=== PATIENT | female | born 1970 | race African-American/Black ===

== ENCOUNTER 2016-09-24 19:06 | Emergency (ER) | payer SELFPAY ==
[~2016-09-24] VITALS: Ht 170.2 cm; Wt 122.5 kg
[2016-09-24] MEDS ORDERED: TRULICITY0.75 MG/0. SQ (19:21)
[2016-09-24 19:35] VITALS: BP 145/89
[2016-09-24] MEDS ORDERED: Ketorolac 30mg Inj IV ONE (19:45)
[2016-09-24] MEDS ORDERED: Famotidine 20 MG/ 2ML VIAL IVP ONE (19:45)
--- NOTE | 2016-09-24 19:52 | Emergency Room Report ---
History of Present Illness General Chief Complaint: Abdominal Pain Source: Patient Present Illness HPI [id number] walk-in with abd pain since last night. Initialy had chest pain, substernal, non-radiating yesterday. Relieved with tylenol. Then had generalized non-focal abd pain with nausea and chills, non radiating since last night. Took meds today and slept all day, pain woke her up. History of DM, C/ section. Denies associated vomiting, diarrhea. Denies sick contacts, foreign travel. Allergies: Coded Allergies: PENICILLINS (Verified Allergy, Unknown, 09/24/16) Patient History Past Medical History: DM, GERD Past Surgical History: hysterectomy Pertinent Family History: none Social History: Denies: alcohol use, drug use, smoking Last Menstrual Period: 2 MONTHSS AGO Now: No Immunizations: UTD Reviewed Nursing Documentation: PMH: Agreed, PSxH: Agreed Nursing Documentation-PMH Hx Diabetes: Yes - DM TYPE 2 Review of Systems All Other Systems: negative except mentioned in HPI Physical Exam Vital Signs Date Time Temp Pulse Resp B/P Pulse Ox O2 Delivery O2 Flow Rate FiO2 09/24/16 19:16 98.4 110 18 145/89 98 Room Air Sp02 EP Interpretation: reviewed, abnormal General Appearance: normal inspection, well appearing, no apparent distress, alert, GCS 15, non-toxic, obese Head: normocephalic, atraumatic Eyes: bilateral eye EOMI, bilateral eye PERRL ENT: normal ENT inspection, hearing grossly normal, normal voice Neck: normal inspection, full range of motion, supple, no bony tend Respiratory: normal inspection, lungs clear, normal breath sounds, no respiratory distress, no retraction, no wheezing Cardiovascular #1: regular rate, rhythm, no edema Gastrointestinal: normal inspection, normal bowel sounds, non tender, soft, no mass, no guarding, no hernia, no pulsatile mass, no rebound Genitourinary: no CVA tenderness Musculoskeletal: normal inspection, back normal, normal range of motion, Jama' s Sign negative Neurologic: normal inspection, alert, oriented x3, responsive, lobster fisherman III-XII nml as tested, motor strength/tone normal, speech normal Psychiatric: normal inspection, judgement/insight normal, mood/affect normal Skin: normal inspection, normal color, no rash Lymphatic: normal inspection Medical Decision Making Diagnostic Impression: Primary Impression: Abdominal pain Qualified Codes: R10.13 - Epigastric pain Additional Impressions: Chest pain Qualified Codes: R07.9 - Chest pain, unspecified Fatty liver Uterine fibroid Qualified Codes: D25.9 - Leiomyoma of uterus, unspecified ER Course Epigastric abd pain - No leuks. Afebrile. 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 Uterine fibroids. No other acute bacterial, surgical problem requiring additional intervention, admission - Patient feels much better with analgesia - Advised to followup with PMD to recheck LFTs Chest pain - ECG NSR. Troponin 0. - Chest pain was yesterday so one set sufficient to r/o ACS at this time Utox + for meth likely lab error Patient vehemently denies drug use Not on ADHD meds No prior history here for drug abuse EKG Diagnostic Results Rate: normal Rhythm: NSR ST Segments: no acute changes ASA given to the pt in ED: No Rhythm Strip Diag. Results EP Interpretation: yes Rate: 98 Rhythm: NSR, no PVC's, no ectopy Chest X-Ray Diagnostic Results Chest X-Ray Ordered: Yes # of Views/Limited/Complete: 1 View Interpretation: no consolidation, no effusion, no pneumothorax, no acute cardiopulmonary disease Indication: Chest Pain Impression: No acute disease Date Electronically Signed: Sep 24, 2016 Time Electronically Signed: 19:51 Interpreting ER Physician: Mita Last Vital Signs Date Time Temp Pulse Resp B/P Pulse Ox O2 Delivery O2 Flow Rate FiO2 09/24/16 19:35 98.4 103 17 145/89 97 Room Air Status: improved Disposition: HOME, SELF-CARE LAWRENCE SENIOR M.D. Sep 24, 2016 19:51
[2016-09-24 20:21] LABS: APPEARANCE,URINE CLEAR; BASOPHILS % (AUTO) 0.9 % (0.0-2.0); EOSINOPHILS % (AUTO) 1.2 % (0.0-3.0); KETONES,URINE 3+ (NEGATIVE); LEUKOCYTE ESTERASE ,URINE 1+ (NEGATIVE); MEAN CORPUSCULAR HEMOGLOBIN 25.2 PG (27.0-31.0); MEAN CORPUSCULAR VOLUME 79 FL (80-99); MEAN PLATELET VOLUME 7.9 FL (6.5-10.1); MONOCYTES % (AUTO) 3.3 % (1.0-10.0); NEUTROPHILS % (AUTO) 80.7 % (45.0-75.0); NITRITE,URINE NEGATIVE (NEGATIVE); PH,URINE 6 (4.5-8.0); PLATELET COUNT 243 K/UL (150-450); PROTEIN,URINE 1+ (NEGATIVE); RED BLOOD COUNT 4.52 M/UL (4.20-5.40); RED CELL DISTRIBUTION WIDTH 15.3 % (11.6-14.8); UROBILINOGEN,URINE 8 MG/DL (0.0-1.0); WHITE BLOOD COUNT 8.4 K/UL (4.8-10.8)
[2016-09-24 20:36] LABS: RBC,URINE 0-2 /HPF (0 - 2); SQUAMOUS EPITHELIAL CELL,UR FEW /LPF (NONE/OCC)
[2016-09-24 20:37] LABS: BACTERIA,URINE FEW /HPF; ICTOTEST POSITIVE
[2016-09-24 20:47] LABS: TROPONIN I < 0.30 ng/mL (<=0.30)
[2016-09-24 21:09] LABS: ANION GAP 16 (5-15); CARBON DIOXIDE 22 mEQ/L (20-30); CHLORIDE 100 mEQ/L (98-107); POTASSIUM 3.8 mEQ/L (3.4-4.9); SODIUM 138 mEQ/L (135-145)
[2016-09-24 21:10] LABS: ALANINE AMINOTRANSFERASE 249 U/L (3-33); ASPARTATE AMINO TRANSFERASE 217 U/L (5-40); CREATININE 0.8 mg/dL (0.5-0.9); GLOMERULAR FILTRATION RATE > 60 mL/min (>60)
[2016-09-24 21:11] LABS: ALBUMIN/GLOBULIN RATIO 1.1 (1.0-2.7); LIPASE 15 U/L (< 60); TOTAL PROTEIN 7.6 g/dL (6.6-8.7)
[2016-09-24 21:26] LABS: BILIRUBIN,DIRECT 2.6 mg/dL (0.1-0.3)
[2016-09-24 21:35] VITALS: BP 137/84
[2016-09-24 23:35] VITALS: BP 142/81
[2016-09-24 23:42] VITALS: BP 142/81
--- NOTE | 2016-09-25 09:20 | Diagnostic Imaging Report ---
Indication: Abdominal pain Technique: Robles-scale and duplex images of the upper abdomen were obtained Comparison: Findings: Exam is limited due to patient body habitus. Gallbladder is nondistended and evaluation is therefore limited. Patient reportedly not n.p.o. No gross gallstones, wall thickening, or pericholecystic fluid. Sonographic Durbin's sign is negative. Common bile duct measures 5 mm in diameter. No intrahepatic biliary ductal dilatation. Liver demonstrates diffusely increased echogenicity, consistent with diffuse hepatocellular disease, most likely fatty change. Portal vein and hepatic veins are patent. Pancreas is unremarkable. Spleen is unremarkable. Left kidney measures 13.8 cm in length. Right kidney measures 10.9 cm length. Both kidneys demonstrate normal echogenicity. There is no hydronephrosis. No focal abnormality . Non-aneurysmal abdominal aorta . Impression: Limited exam, as described, due to patient body habitus and lack of distention of the gallbladder No gross gallstones but cannot rule out with any confidence. Negative for dilated ducts Liver demonstrates diffusely increased echogenicity, consistent with diffuse hepatocellular disease, most likely fatty change.
--- NOTE | 2016-09-25 09:26 | Diagnostic Imaging Report ---
Clinical Indication: Abdominal pain Technique: No oral contrast utilized, per emergency room physician request IV administration nonionic contrast. Venous phase spiral acquisition obtained through the abdomen and pelvis. Multiplanar reconstructions were generated. Total dose length product 1053 mGycm. CTDIvol(s) 19 mGy. Dose reduction achieved using automated exposure control Comparison: None Findings: There is no evidence of diverticulosis or diverticulitis. Small but otherwise normal appendix. One prominent lymph nodes are seen in the right lower quadrant. No small bowel distention. No free or loculated intraperitoneal air or fluid. The distal esophagus, stomach, duodenum are unremarkable. The liver is somewhat hypoattenuating, consistent with diffuse hepatocellular disease, most likely fatty change. There is a subcentimeter low-attenuation lesion and segment 4 a which is too small to characterize. No other focal abnormalities. Gallbladder is nondistended. No obvious gallstones. The pancreas, spleen, adrenals, left kidney are unremarkable. Subcentimeter low-attenuation lesion within the right kidney is too small to characterize, most likely benign simple cortical cyst. No retroperitoneal or mesenteric mass or adenopathy. The uterus contains an enhancing 5.5 cm fibroid. There is central low-attenuation which may indicate necrosis. A few other smaller fibroids are also demonstrated. No adnexal mass. The included lung bases are clear. There are degenerative changes of the lumbar spine Impression: No acute abnormality Fibroid uterus Fatty liver Subcentimeter low-attenuation lesion within the right kidney, too small to characterize, most likely benign cortical cyst. No further followup necessary This agrees with the preliminary interpretation provided overnight by [facility]erad[facility] service. The CT scanner at [facility] is accredited by the [employer] and the scans are performed using protocols designed to limit radiation exposure to as low as reasonably achievable to attain images of sufficient resolution adequate for diagnostic evaluation.
== END 2016-09-24 23:42 | disposition home or self-care (01) ==
LOC: EMR 20:00
DX: R10.13 Epigastric pain (principal); R07.9 Chest pain, unspecified; K76.0 Fatty (change of) liver, not elsewhere classified; D25.9 Leiomyoma of uterus, unspecified; Z88.0 Allergy status to penicillin; E11.9 Type 2 diabetes mellitus without complications; K21.9 Gastro-esophageal reflux disease without esophagitis
CPT/HCPCS: 36415; 74177; 76700; 80053; 80300; 81003; 82248; 83690; 84484; 84702; 85025; 93005; 96374; 96375; 99284; J1885; Q9967; S0028

== ENCOUNTER 2017-08-18 21:06 | Emergency (ER) | payer OTHER ==
[~2017-08-18] VITALS: Ht 170.2 cm; Wt 120.2 kg
[~2017-08-18 21:06] MED LIST: TRULICITY0.75 MG/0. SQ
--- NOTE | 2017-08-18 21:32 | Emergency Room Report ---
History of Present Illness General Chief Complaint: Pain Source: Patient Present Illness HPI Patient stubbed her toe yesterday. The pain is increasing today. She's taken Tylenol. There is swelling and discoloration/bruising of the toe. The pain is rated at 8/10, throbbing, aching, not radiating and worse when foot dependent. No numbness. No fevers. 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 The patient has history of diabetes. Allergies: Coded Allergies: PENICILLINS (Verified Allergy, Unknown, 09/24/16) Patient History Past Medical History: see triage record Social History: Denies: smoking Social History Narrative works in [employer] Last Menstrual Period: 07/27/17 Now: No : 2 Para: 2 Nursing Documentation-PMH Hx Diabetes: Yes - DM TYPE 2 Review of Systems Constitutional: Denies: fever Musculoskeletal: Reports: see HPI Skin: Reports: see HPI Neurological: Reports: see HPI Hematologic/Lymphatic: Reports: see HPI Physical Exam Vital Signs Date Time Temp Pulse Resp B/P (MAP) Pulse Ox O2 Delivery O2 Flow Rate FiO2 08/18/17 21:25 98.1 94 14 134/83 97 Room Air 98.1 Sp02 EP Interpretation: reviewed, normal General Appearance: well appearing, no apparent distress Head: normocephalic, atraumatic Eyes: bilateral eye normal inspection ENT: hearing grossly normal, normal voice, moist mucus membranes Neck: full range of motion, supple Respiratory: no respiratory distress, speaking full sentences Cardiovascular #2: 2+ dorsalis pedis (R) - good cap fill of toe Gastrointestinal: normal inspection Musculoskeletal: normal range of motion, no calf tenderness, swelling - R 3rd toe, TTP Neurologic: alert, sensory intact, normal gait Psychiatric: mood/affect normal Skin: other - ecchimoses R 3rd toe Medical Decision Making Diagnostic Impression: Primary Impression: Toe contusion Qualified Codes: S90.121A - Contusion of right lesser toe(s) without damage to nail, initial encounter ER Course Patient presents with R toe pain. DDx: fracture, contusion, hematoma. No evidence of infection. H/O diabetes. Accucheck will be checked. Analgesia given. Xray no fx. Glucose 102. Tho splint applied by tech. Neurovasc checked by me as well as tension and position which are excellent. Discussed findings with patient. Patient stable for outpatient observation and treatment. Other X-Ray Diagnostic Results Other X-Ray Diagnostic Results : # of Views/Limited Vs Complete: 3 View Indication: Pain EP Interpretation: Yes Interpretation: no dislocation, no soft tissue swelling, no fractures Impression: No acute disease Electronically Signed by: Charles Sotelo MD Last Vital Signs Date Time Temp Pulse Resp B/P (MAP) Pulse Ox O2 Delivery O2 Flow Rate FiO2 08/18/17 22:45 98.1 84 14 134/83 97 Room Air 208.6 Status: improved Disposition: HOME, SELF-CARE Condition: Improved Scripts Tramadol Hcl* (ULTRAM*) 50 Mg Tablet 50 MG ORAL Q6H PRN for For Pain, #10 TAB 0 Refills Prov: Charles Sotelo M.D. 08/18/17 Ibuprofen* (MOTRIN*) 600 Mg Tablet 600 MG ORAL Q6H PRN for For Pain, #16 TAB Prov: Charles Sotelo M.D. 08/18/17 Charles Sotelo M.D. August 18, 2017 21:32
[2017-08-18 21:45] VITALS: BP 134/83
[2017-08-18] MEDS ORDERED: TRAMADOL HCL50 MG ORAL (22:33)
[2017-08-18] MEDS ORDERED: IBUPROFEN600 MG ORAL (22:33)
[2017-08-18 22:45] VITALS: BP 134/83
--- NOTE | 2017-08-19 10:14 | Diagnostic Imaging Report ---
Indication: Pain Comparison: None Findings: 3 views of the right foot were obtained. There is widening of the fifth PIP joint which is a chronic finding. This may be on the basis of previous surgery or trauma. There is no acute injury or malalignment identified. Small plantar calcaneal spurs noted. IMPRESSION: No acute injury
== END 2017-08-18 22:45 | disposition home or self-care (01) ==
LOC: EMR 21:37
DX: S90.121A Contusion of right lesser toe(s) without damage to nail, initial encounter (principal); W22.03XA Walked into furniture, initial encounter; Y92.9 Unspecified place or not applicable; E11.9 Type 2 diabetes mellitus without complications; Z88.0 Allergy status to penicillin
CPT/HCPCS: 99283

== ENCOUNTER 2017-12-02 13:11 | Emergency (ER) | payer OTHER ==
[~2017-12-02] VITALS: Ht 177.8 cm; Wt 74.8 kg
[~2017-12-02 13:11] MED LIST changes: +IBUPROFEN600 MG ORAL; +TRAMADOL HCL50 MG ORAL
[2017-12-02 13:35] VITALS: BP 112/73
[2017-12-02] MEDS ORDERED: Benzonatate 100mg Perles ORAL ONE (13:45)
--- NOTE | 2017-12-02 13:48 | Emergency Room Report ---
History of Present Illness General Chief Complaint: Upper Respiratory Illness Present Illness HPI 47-year-old female patient presents ER complaining of cough for the past few days. Reports that daughter was recently seen in ER with similar symptoms, diagnosed and discharged with bronchitis. Patient reports headache during this time. Denies hemoptysis. Reports subjective fever and chills at home during this time, does not have a thermometer and did not check temperature. Denies history of CHF or asthma. Denies calf pain. Denies vomiting, chest pain, abdominal pain, dysuria, hematuria. Denies recent travel, history of cancer. states did not take any cough medication. Denies hemoptysis or coughing up sputum. denies smoking. Reports cough worse at night. (Chapin Tang P.AIván) Allergies: Coded Allergies: PENICILLINS (Verified Allergy, Unknown, 09/24/16) Patient History Past Medical History: see triage record Last Menstrual Period: unk Now: No Reviewed Nursing Documentation: PMH: Agreed; PSxH: Agreed (Chapin Tang.Michael) Nursing Documentation-PMH Hx Diabetes: Yes - DM TYPE 2 (Chapin Tang P.AIván) Review of Systems All Other Systems: negative except mentioned in HPI (Chapin Tang P.AIván) Physical Exam Vital Signs Date Time Temp Pulse Resp B/P (MAP) Pulse Ox O2 Delivery O2 Flow Rate FiO2 12/02/17 13:34 98.7 114 18 112/73 97 Room Air 98.8 Sp02 EP Interpretation: reviewed, normal General Appearance: well appearing, no apparent distress, alert, GCS 15, non- toxic Head: normocephalic, atraumatic Eyes: bilateral eye normal inspection, bilateral eye PERRL ENT: hearing grossly normal, normal pharynx, no angioedema, normal voice, uvula midline, moist mucus membranes Neck: full range of motion Respiratory: lungs clear, normal breath sounds, no rhonchi, no respiratory distress, no accessory muscle use, no wheezing, speaking full sentences Cardiovascular #1: regular rate, rhythm, no edema Gastrointestinal: non tender, soft, no mass, non-distended, no guarding, no rebound Musculoskeletal: back normal, digits/nails normal, gait/station normal, normal range of motion, non-tender, no calf tenderness, Jama's Sign negative Neurologic: alert, oriented x3, responsive, motor strength/tone normal, sensory intact Psychiatric: mood/affect normal Skin: no rash (Chapin Tang) Medical Decision Making PA Attestation Dr. Sotelo is my supervising Physician whom patient management has been discussed with. (Chapin Tang) Diagnostic Impression: Primary Impression: Upper respiratory infection ER Course Pt presents to ED c/o cough, fever, headache. DDX considered but are not limited to influenza, viral URI, pneumonia, strep throat, rhinitis, sinusitis, otitis media. negative Homans sign, no recent travel, no hemoptysis, low suspicion for PE, ordered EKG to rule out cardiac pathology. low suspicion for PE per well's criteria no history of heart failure, no muffled heart sounds, no bilateral edema,low suspicion for CHF exacerbation, will order chest x-ray to rule out. VITAL SIGNS are WNL, patient is afebrile. mild elevation of pulse, will continue to monitor, ordered EKG. ER COURSE: provide with cough medication in the ER. Lungs clear to auscultation, no wheezes, rhonci or rales. patient afebrile. Low suspicion for pneumonia. does not require antibiotics. does not require breathing treatment in the ER at this time. headache likely secondary to cough symptoms, no focal neural deficits, cranial nerves intact as tested. no tonsillar exudates, no pharyngeal erythema, history of cough, no fever, no stridor, uvula midline, low suspicion for peritonsillar abscess. chest x-ray showed no acute disease per the preliminary reading. Do not believe patient requires cardiac workup at this time, instructed to follow-up with PCP, ER precautions given, return to ER for new or worsening symptoms, discuss need for cardiac workup at that time. Likely viral etiology of symptoms, upper respiratory tract infection due to the patient complaints of subjective fever at home. Symptomatic treatment. drink plenty of fluids. Followup with PCP for further treatment and/or referral as needed. ER precautions given, return to ER for new or worsening of symptoms. DISCHARGE: -Rx given for Tessalon Perles -Rx given for Tylenol/Acetaminophen -Rx given for albuterol inhaler to help with breathing symptoms. -Rx given for Promethazine with codeine syrup for cough sx. CURES reviewed. Take at night to help with cough during sleep. At this time pt is stable for d/c to home. Patient is resting comfortably, in no acute distress, nontoxic appearing, smiling and talking without difficulty. Patient to take medications as instructed Will provide with patient care instructions and any necessary prescriptions. Care plan and follow-up instructions provided. Patient instructed to follow-up with primary care provider in 3 - 5 days. Patient questions asked and answered. Patient reports understanding and agreement to treatment plan. ER precautions given. Patient instructed to return to ER immediately for any new or worsening of symptoms including but not limited to increasing SOB, persistent fever, intractable vomiting. - Please note that this Emergency Department Report was dictated using [employer] peddler technology software, occasionally this can lead to erroneous entry secondary to interpretation by the dictation equipment. (Chapin Tang) EKG Diagnostic Results Rate: tachycardiac - 102 Rhythm: NSR ST Segments: no acute changes ASA given to the pt in ED: No PA Scribe Text Ollie Tang PA-C (Chapin Tang P.AIván) Rhythm Strip Diag. Results EP Interpretation: yes Rate: 102 Rhythm: NSR, no PVC's, no ectopy PA Scribe Text Ollie Tang PA-C (Chapin Tang P.A.) Chest X-Ray Diagnostic Results Chest X-Ray Diagnostic Results : Chest X-Ray Ordered: Yes # of Views/Limited/Complete: 1 View Indication: Chest Pain EP Interpretation: Yes PA Xray: Interpretation reviewed, by supervising MD, and agrees with findings. Interpretation: no consolidation, no effusion, no pneumothorax, no acute cardiopulmonary disease Impression: No acute disease (Chapin Tang) Chest X-Ray Diagnostic Results : Electronically Signed by: Scribe documentation reviewed by me and is accurate, Charles Sotelo MD (Charles Sotelo M.D.) Last Vital Signs Date Time Temp Pulse Resp B/P (MAP) Pulse Ox O2 Delivery O2 Flow Rate FiO2 12/02/17 13:34 98.7 114 18 112/73 97 Room Air 98.8 (Chapin Tang P.AIván) Disposition: HOME, SELF-CARE Condition: Stable Scripts Codeine/Promethazine Hcl* (PROMETHAZINE-CODEINE SYRUP*) 118 Ml Syrup 5 ML ORAL Q6H PRN for For Cough, #50 ML 0 Refills Prov: Chapin Tang 12/02/17 Albuterol Sulfate* (ALBUTEROL SULFATE MDI*) 8.5 Gm Hfa.aer.ad 2 PUFF INH Q6H, #1 INH 0 Refills Prov: Chapin Tang 12/02/17 Acetaminophen* (TYLENOL EXTRA STRENGTH*) 500 Mg Tablet 500 MG ORAL Q8H PRN for Prn Headache/Temp > 101, #30 TAB 0 Refills Prov: Chapin Tang 12/02/17 Benzonatate* (TESSALON PERLE*) 100 Mg Capsule 100 MG ORAL THREE TIMES A DAY, #20 PERLE Prov: Chapin Tang 12/02/17 Patient Instructions: Upper Respiratory Infection, Adult Additional Instructions: Followup with primary care provider in 3 -5 days. Take medications as directed. Take codeine cough medication at night, did not take prior to drinking, driving, operating heavy machinery, may cause drowsiness. Patient questions asked and answered. ER precautions given, patient instructed to return to ER immediately for any new or worsening of symptoms, including but not limited to chest pain, shortness of breath, abdominal pain, intractable vomiting, syncope, dizziness. Chapin Tang Dec 02, 2017 13:48 Charles Sotelo M.D. Dec 06, 2017 17:58
[2017-12-02] MEDS ORDERED: ALBUTEROL SULF8.5 GM INH (14:26)
[2017-12-02] MEDS ORDERED: TYLENOL EXTRA500 MG ORAL (14:26)
[2017-12-02] MEDS ORDERED: TESSALON PERLE100 MG ORAL (14:26)
[2017-12-02] MEDS ORDERED: PROMETHAZINE-C118 M1 ORAL (14:41)
--- NOTE | 2017-12-02 14:50 | Diagnostic Imaging Report ---
Indication: Chest pain Technique: One view of the chest Comparison: none Findings: Lungs and pleural spaces are clear. Heart size is normal Impression: No acute process
[2017-12-02 14:52] VITALS: BP 105/76
--- NOTE | 2017-12-03 18:00 | Cardiology Report ---
APPROVED REPORT EKG Measurement Heart [id number] DC [id number] Sinus tachycardia Otherwise normal ECG
== END 2017-12-02 14:55 | disposition home or self-care (01) ==
LOC: EMR 13:55
DX: J06.9 Acute upper respiratory infection, unspecified (principal); E11.9 Type 2 diabetes mellitus without complications; Z88.0 Allergy status to penicillin; R07.9 Chest pain, unspecified
CPT/HCPCS: 71045; 93005; 99283

== ENCOUNTER 2018-02-21 20:03 | Emergency (ER) | payer OTHER ==
[~2018-02-21] VITALS: Ht 172.7 cm; Wt 117.9 kg
[~2018-02-21 20:03] MED LIST changes: +ALBUTEROL SULF8.5 GM INH; +PROMETHAZINE-C118 M1 ORAL; +TESSALON PERLE100 MG ORAL; +TYLENOL EXTRA500 MG ORAL
[2018-02-21] MEDS ORDERED: Morphine Sulfate 4mg/ml Inj (IV/IM USE ONLY) IVP ONE (21:15)
[2018-02-21 21:16] LABS: BASOPHILS % (AUTO) 0.5 % (0.0-2.0); EOSINOPHILS % (AUTO) 4.7 % (0.0-3.0); HEMATOCRIT 35.4 % (37.0-47.0); HEMOGLOBIN 11.7 G/DL (12.0-16.0); MEAN CORPUSCULAR VOLUME 81 FL (80-99); MONOCYTES % (AUTO) 7.3 % (1.0-10.0); NEUTROPHILS % (AUTO) 46.5 % (45.0-75.0); PLATELET COUNT 232 K/UL (150-450); RED BLOOD COUNT 4.39 M/UL (4.20-5.40); RED CELL DISTRIBUTION WIDTH 13.9 % (11.6-14.8); WHITE BLOOD COUNT 5.1 K/UL (4.8-10.8)
[2018-02-21] MEDS ORDERED: DICYCLOMINE HCL10 MG PO (21:23)
[2018-02-21 21:28] LABS: ANION GAP 8 mmol/L (5-15); BLOOD UREA NITROGEN 12 mg/dL (7-18); CALCIUM 9.7 MG/DL (8.5-10.1); CARBON DIOXIDE 27 MMOL/L (21-32); CHLORIDE 107 MMOL/L (98-107); CREATININE 0.9 MG/DL (0.55-1.30); POTASSIUM 3.6 MMOL/L (3.5-5.1); SODIUM 142 MMOL/L (136-145)
--- NOTE | 2018-02-21 21:31 | Emergency Room Report ---
History of Present Illness General Chief Complaint: Abdominal Pain Source: Patient, Medical Record Present Illness HPI Patient is a 47-year-old female presented after increased epigastric pain. Patient reports having increased crampy abdominal pain which was intermittent with episodes lasting approximately 5 minutes. Patient reports having intermittent symptoms in the past. She reports having taken omeprazole for fatty liver. Patient denies any hematemesis or bloody stools. She denies any diarrhea. Patient had previous had similar symptoms and had previous CT imaging which showed a fatty liver. She reports having prior surgery which included tummy tuck.She reports having recent increased alcohol approximately 2 weeks ago. She denies any fever. She reports having some intermittent chest discomfort.The chest discomfort was unchanged by exertion or by deep breath. Allergies: Coded Allergies: PENICILLINS (Verified Allergy, Unknown, 09/24/16) Patient History Past Medical History: see triage record Last Menstrual Period: 08/2017 Now: No : 2 Para: 2 Reviewed Nursing Documentation: PMH: Agreed; PSxH: Agreed Nursing Documentation-PMH Hx Diabetes: Yes - DM TYPE 2 Hx Neurological Problems: No - HYPOTHYROIDISM Review of Systems All Other Systems: negative except mentioned in HPI Physical Exam Vital Signs Date Time Temp Pulse Resp B/P (MAP) Pulse Ox O2 Delivery O2 Flow Rate FiO2 02/21/18 20:14 98.1 99 16 127/83 94 Room Air General Appearance: well appearing, no apparent distress, alert, GCS 15, obese Head: normocephalic, atraumatic ENT: hearing grossly normal, normal voice Neck: full range of motion, supple Respiratory: no respiratory distress, speaking full sentences Cardiovascular #1: normal inspection, regular rate, rhythm Gastrointestinal: normal inspection, soft, tenderness - mid epigastirc Neurologic: normal inspection, alert, oriented x3, responsive, normal gait Psychiatric: mood/affect normal Skin: normal inspection, no rash Medical Decision Making Diagnostic Impression: Primary Impression: Abdominal pain ER Course Patient presented for abdominal pain. Differential diagnoses included ischemic bowel, appendicitis, perforated viscus, abdominal aortic aneurysm, inferior myocardial infarction, viral gastroenteritis Because of complexity of patient's case laboratory studies were ordered. EKG interpreted by me showed normal sinus rhythm with a rate of [address] or T wave changes. Chest x-ray one view interpreted by me showed vascular congestion without evident infiltrate and normal cardiac size. The patient was noted to have a prior CT imaging. The patient was advised dietary modification.The patient is advised not to drink alcohol due to fatty liver. She is given prescription for pain medications. 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 The patient is advised to return if she began having worsening condition or other concerns. Labs Test 02/21/18 20:50 White Blood Count 5.1 K/UL (4.8-10.8) Red Blood Count 4.39 M/UL (4.20-5.40) Hemoglobin 11.7 G/DL (12.0-16.0) Hematocrit 35.4 % (37.0-47.0) Mean Corpuscular Volume 81 FL (80-99) Mean Corpuscular Hemoglobin 26.6 PG (27.0-31.0) Mean Corpuscular Hemoglobin Concent 33.1 G/DL (32.0-36.0) Red Cell Distribution Width 13.9 % (11.6-14.8) Platelet Count 232 K/UL (150-450) Mean Platelet Volume 7.6 FL (6.5-10.1) Neutrophils (%) (Auto) 46.5 % (45.0-75.0) Lymphocytes (%) (Auto) 41.0 % (20.0-45.0) Monocytes (%) (Auto) 7.3 % (1.0-10.0) Eosinophils (%) (Auto) 4.7 % (0.0-3.0) Basophils (%) (Auto) 0.5 % (0.0-2.0) EKG Diagnostic Results Rate: normal Rhythm: NSR ST Segments: no acute changes Last Vital Signs Date Time Temp Pulse Resp B/P (MAP) Pulse Ox O2 Delivery O2 Flow Rate FiO2 02/21/18 20:14 98.1 99 16 127/83 94 Room Air Status: improved Disposition: HOME, SELF-CARE Condition: Stable Scripts Tramadol Hcl* (ULTRAM*) 50 Mg Tablet 50 MG ORAL Q6H PRN for For Pain, #10 TAB 0 Refills Prov: Ramu Nugent MD 02/21/18 Dicyclomine Hcl* (DICYCLOMINE HCL*) 10 Mg Capsule 10 MG PO QID, #30 CAP Prov: Ramu Nugent MD 02/21/18 Patient Instructions: Abdominal Pain, Adult Additional Instructions: Follow up with Colorist Formulator in 2-3 days. Return if any problems Ramu Nugent MD Feb 21, 2018 21:31
[2018-02-21 21:32] LABS: ALANINE AMINOTRANSFERASE 26 U/L (12-78); ALBUMIN 3.3 G/DL (3.4-5.0); ALBUMIN/GLOBULIN RATIO 0.7 (1.0-2.7); ALKALINE PHOSPHATASE 78 U/L (46-116); ASPARTATE AMINO TRANSFERASE 13 U/L (15-37); BILIRUBIN,TOTAL 0.3 MG/DL (0.2-1.0)
[2018-02-21] MEDS ORDERED: TRAMADOL HCL50 MG ORAL (21:33)
--- NOTE | 2018-02-21 21:34 | Diagnostic Imaging Report ---
EXAM: XR Chest, 1 View CLINICAL HISTORY: SOB TECHNIQUE: Frontal view of the chest. COMPARISON: Chest x-ray dated 12/02/2017 FINDINGS: Lungs: Unremarkable. No consolidation. Pleural space: Unremarkable. No pneumothorax. Heart: Unremarkable. No cardiomegaly. Mediastinum: Unremarkable. Bones/joints: Unremarkable. IMPRESSION: Normal chest x-ray.
[2018-02-21 21:44] VITALS: BP 143/80
[2018-02-21 22:04] VITALS: BP 135/86
== END 2018-02-21 22:06 | disposition home or self-care (01) ==
LOC: EMR 20:30
DX: R10.13 Epigastric pain (principal); E03.9 Hypothyroidism, unspecified; E11.9 Type 2 diabetes mellitus without complications; Z88.0 Allergy status to penicillin
CPT/HCPCS: 36415; 71045; 80053; 82962; 83690; 84484; 85025; 93005; 96374; 96375; 99284; J2270; J2405; S0028